=== PATIENT | female | born 1975 | race Caucasian/White ===

== ENCOUNTER → 2023-01-29 | Day surgery (SDC) | payer BC ==
[~2023-01-29] MED LIST: Flumazenil 0.1 MG/ML 10 ML MDV ONE; Ketamine 200 MG/20 ML MDV ONE; Lactated Ringers 1,000 ML IV SCH; Midazolam 1 MG/ML 2 ML SDV ONE; Propofol 200 MG/20 ML SDV ONE; fentaNYL 50 MCG/ML SDV ONE
== END ==
LOC: CC.SDS 08:46
PROVIDERS: ATTEND Family Medicine
DX: Z12.11 Encounter for screening for malignant neoplasm of colon (principal); K62.1 Rectal polyp; K57.30 Diverticulosis of large intestine without perforation or abscess without bleeding; J30.9 Allergic rhinitis, unspecified; H81.10 Benign paroxysmal vertigo, unspecified ear; G56.00 Carpal tunnel syndrome, unspecified upper limb; R60.0 Localized edema; G43.909 Migraine, unspecified, not intractable, without status migrainosus; M53.86 Other specified dorsopathies, lumbar region; Z90.710 Acquired absence of both cervix and uterus; Z98.51 Tubal ligation status; Z79.899 Other long term (current) drug therapy
CPT/HCPCS: 00811; J2250; J2704; J3010; J3490; J7120